=== PATIENT | male | born 1990 | race Caucasian/White ===

== ENCOUNTER 2017-06-03 09:43 | Emergency (ER) | payer MEDICAID ==
[~2017-06-03] VITALS: Ht 177.8 cm; Wt 93.0 kg
[2017-06-03 09:54] VITALS: Ht 177.8 cm; Wt 93.0 kg
[2017-06-03 11:15] VITALS: BP 131/71
== END 2017-06-03 11:48 | disposition home or self-care (01) ==
LOC: ED 09:43
DX: J06.9 Acute upper respiratory infection, unspecified (principal)
CPT/HCPCS: J7613; J7644; Q0092

== ENCOUNTER 2019-05-21 10:33 | Emergency (ER) | payer OTHER ==
[~2019-05-21] VITALS: Ht 177.8 cm; Wt 96.6 kg
[2019-05-21 10:41] VITALS: BP 126/77; Ht 177.8 cm; Wt 96.6 kg
== END 2019-05-21 11:20 | disposition home or self-care (01) ==
LOC: ED 10:33
DX: J98.01 Acute bronchospasm (principal)